=== PATIENT | male | born 2000 | race Two or more races ===

== ENCOUNTER 2022-08-19 11:51 | Emergency (ER) | payer MEDICAID ==
[~2022-08-19] VITALS: Ht 160 cm; Wt 72.6 kg
[2022-08-19 13:57] VITALS: BP 146/85
== END 2022-08-19 15:15 | disposition home or self-care (01) ==
LOC: ER 11:51
DX: L05.91 Pilonidal cyst without abscess (principal)

== ENCOUNTER 2023-07-20 12:09 | Emergency (ER) | payer BC, MEDICAID ==
[~2023-07-20] VITALS: Ht 160 cm; Wt 67.7 kg
[2023-07-20 13:46] VITALS: BP 139/61; PULSE 71; RESP 16; TEMP 97.7; O2SAT 100
[2023-07-20] MEDS ORDERED: IBUP-1454 PO (14:03)
[2023-07-20] MEDS ORDERED: BACDST PO (14:03)
== END 2023-07-20 14:41 | disposition home or self-care (01) ==
LOC: ER 12:09
DX: L05.01 Pilonidal cyst with abscess (principal)
CPT/HCPCS: 10080

== ENCOUNTER 2025-03-13 22:45 | Emergency (ER) | payer BC, MEDICAID ==
[~2025-03-13] VITALS: Ht 160 cm; Wt 63.5 kg
[~2025-03-13 22:45] MED LIST changes: -DOXY100C4 PO; -IBUP-1456 PO
--- NOTE | 2025-03-14 | DVH ---
ULTRASOUND SCROTUM CLINICAL INDICATION: LEFT TESTICULAR PAIN TECHNIQUE: High resolution scrotal ultrasound was performed with a linear transducer with duplex dopp ler and treasury representative images acquired. Color Doppler with spectral analysis was performed/attempted of the testes. COMPARISON: None FINDINGS: Right testicle: Normal in size, measuring 4.2 x 2.3 x 3.2 cm. The testicular parenchyma is homogeneou s. No testicular mass. Normal intratesticular blood flow. The right epididymis appears normal. Small right epididymal cyst measuring 3 mm Left testicle: Normal in size, measuring 3.8 x 2.4 x 3.2 cm. The testicular parenchyma is homogeneous . No testicular mass. Normal intratesticular blood flow. Enlarged in hypervascular left epididymis. IMPRESSION: Left epididymitis.
[2025-03-14] MEDS: KETOROLAC TROMETH 60MG/2ML VIAL IM ONE (00:15)
[2025-03-14] MEDS: cefTRIAXone SOD 1,000 MG VL IM ONE (00:30)
[2025-03-14] MEDS ORDERED: IBUP-1456 PO (00:35)
[2025-03-14] MEDS ORDERED: DOXY100C4 PO (00:35)
--- NOTE | 2025-03-14 00:35 | ED.PDOC ---
General HPI Comments C/C: LEFT SIDE TESTICLE PAIN FOR THE PAST WEEK. PATIENT STATES THAT THE PAIN COMES AND GOES. DENIES ANY TRAUMA OR STRAIN. PATIENT DOES STATE SEXUALLY ACTIVE WITH 1 PARTNER HOWEVER RECENTLY DID NOT WEAR PROTECTION. REPORTS NO HISTORY OF STDS IN THE PAST DENIES FEVER, CHILLS, NAUSEA, VOMITING Chief Complaint: Testicle Pain Time Seen by MD: 23:05 Reviewed notes: Nurses Notes, Medications, Allergies Allergies: Coded Allergies: NO KNOWN ALLERGIES (Unverified , 08/19/22) Home Meds Active Scripts Ibuprofen (Ibuprofen) 800 Mg Tab, 800 MG PO Q8HP PRN for 5 Days, #15 TAB Prov:EMMY TOBIN [employer] 03/14/25 Doxycycline Hyclate (Doxycycline Hyclate) 100 Mg Cap, 100 MG PO BID for 7 Days, #14 CAP Prov:EMMY TOBIN [employer] 03/14/25 Ibuprofen (Ibuprofen) 600 Mg Tab, 1 TAB PO TID, #30 TAB Prov:NESSA SMART 07/20/23 Sulfamethoxazole W/Trimethopri (Bactrim Ds Tablet) 1 Tab Tb, 1 TAB PO BID for 10 Days, #20 TAB Prov:NESSA SMART 07/20/23 Information Source: Patient Mode of Arrival: Ambulatory Past Medical History PAST MEDICAL HISTORY: Denies Surgical History: Denies all surgeries Family History Family History: Reviewed,noncontributory to illness, No family hx of Cancer, No family hx of DM, No family hx of Heart isabela, No family hx of HTN, No family hx ofKidney isabela, No family hx of Liver isabela, No family hx of Lung isabela, No family hx of Stroke Social History Smoker: Non-Smoker Alcohol: Denies ETOH Use Drugs: Denies Drug Use Lives In: Home Constitutional: denies: chills, diaphoresis, fatigue, fever, malaise, sweats, weakness, others EENTM: denies: blurred vision, double vision, ear bleeding, ear discharge, ear drainage, ear pain, ear ringing, eye pain, eye redness, hearing loss, mouth pain, mouth swelling, nasal discharge, nose bleeding, nose congestion, nose pain, photophobia, tearing, throat pain, throat swelling, voice changes, others Respiratory: denies: cough, hemoptysis, orthopnea, SOB at rest, shortness of breath, SOB with excertion, stridor, wheezing, others Cardiovascular: denies: chest pain, dizzy spells, diaphoresis, Dyspnea on exertion, edema, irregular heart beat, left arm pain, lightheadedness, palpit ations, PND, syncope, others Gastrointestinal: denies: abdomen distended, abdominal pain, blood streaked b owels, constipated, diarrhea, dysphagia, difficulty swallowing, hematemesis, melena, nausea, poor appetite, poor fluid intake, rectal bleeding, rectal pain, vomiting, others Genitourinary: reports: testicle pain; denies: burning, dysuria, flank pain, frequency, hematuria, incontinence, penile discharge, penile sore, pain, testicle swelling, urgency, others Neurological: denies: dizziness, fainting, headache, left sided numbness, left sided weakness, numbness, paresthesia, pre-existing deficit, right sided numbness, right sided weakness, seizure, speech problems, tingling, tremors, weakness, others Musculoskeletal: denies: back pain, gout, joint pain, joint swelling, muscle pain, muscle stiffness, neck pain, others Integumetry: denies: bruises, change in color, change in hair/nails, dryness, laceration, lesions, lumps, rash, wounds, others Allergic/Immunocompromised: denies: Difficulty Healing, Frequent Infections, Hives, Itching, others Hematologic/Lymphatic: denies: anemia, blood clots, easy bleeding, easy bruising, swollen glands, others Endocrine: denies: excessive hunger, excessive sweating, excessive thirst, excessive urination, flushing, intolerance to cold, intolerance to heat, unexplained weight gain, unexplained weight loss, others Psychiatric: denies: anxiety, bipolar disorder, depression, hopeless, panic di sorder, schizophrenia, sleepless, suicidal, others Physical Exam General Appearance: No Apparent Distress, Normal HEENT: Pharynx Normal Neck: Full Range of Motion, Non-Tender Respiratory: Lungs Clear, No Respiratory Distress, Normal Breath Sounds Cardiovascular: No Murmur, Normal Peripheral Pulses, Regular Rate/Rhythm Breast Exam: Deferred Gastrointestinal: No Organomegaly, Non Tender, No Pulsatile Mass, Normal Bowel Sounds, Soft Genitalia: Epididymis (LEFT TESTICLE TENDER ON PALPATION TRACE SWELLING NO NOTED LESIONS), Deferred Pelvic: Deferred Rectal: Deferred Extremities: Normal capillary refill, Normal inspection, Normal range of m otion, Non-tender, No pedal edema Musculoskeletal : Apperance: Normal Neurologic: Alert, medical office receptionist II-XII nml as Tested, No Motor Deficits, Normal Affect, Normal Mood, No Sensory Deficits Cerebellar Function: Normal Reflexes: Normal Skin: Dry, Normal Color, Warm Lymphatic: No Adenopathy Was a procedure done? Was a procedure done?: No Differential Diagnosis Kidney stone (Female): N/A Penile/Scrotal: Epidiymitis, Hydrocele, Testicular Torsion X-Ray, Labs, Meds, VS Vital Signs Date Time Temp Pulse Resp B/P (MAP) Pulse Ox O2 Delivery O2 Flow Rate FiO2 03/13/25 23:18 98.9 69 16 158/97 (117) 99 98.9 X-Ray, Labs, Meds, VS Comment TESTICULAR ULTRASOUND SHOWS LEFT TESTICULAR EPIDIDYMITIS. WE WILL TREAT CONSIDER POSSIBLE CAUSE OF STD. PATIENT GIVEN ROCEPHIN 1 G IM. SCRIPT TRIAL OF DOXYCYCLINE TWICE DAILY X7 DAYS. IBUPROFEN 800 MG T.I.D. PRN FOR THE PAIN SWELLING. ADVISED TO USE SUPPORTIVE BRIEFS AND ICE. FOLLOW UP WITH HIS PCP IN 2 DAYS. ER RETURN PRECAUTIONS GIVEN PATIENT INDICATES UNDERSTANDING AGREES WITH DISCHARGE PLAN OF CARE. Time of 1ST Reevaluation: 23:30 Reevaluation 1ST: Unchanged Time of 2ND Reevaluation: 00:33 Reevaluation 2ND: Improved Patient Education/Counseling: Diagnosis, Treatment, Prognosis, Need For Follow Up Family Education/Counseling: No Family Present Departure 1 Departure Time of Disposition: 00:33 Impression: Primary Impression: Epididymitis, left Disposition: HOME / SELF CARE / HOMELESS Condition: Stable e-Prescriptions Ibuprofen (Ibuprofen) 800 Mg Tab 800 MG PO Q8HP PRN for 5 Days, #15 TAB Prov: EMMY TOBIN 03/14/25 Doxycycline Hyclate (Doxycycline Hyclate) 100 Mg Cap 100 MG PO BID for 7 Days, #14 CAP Prov: EMMY TOBIN 03/14/25 Discharged With: Self Critical Care Note Critical Care Time?: No Stability Stability form required: EMMY Saunders March 14, 2025 00:35
[2025-03-14 05:09] VITALS: BP 127/82; PULSE 54; RESP 18; TEMP 98.4; O2SAT 99
[2025-03-14] MEDS: KETOROLAC TROMETH 30 MG/ML 1ML VIAL ONE (05:09)
[2025-03-14] MEDS: cefTRIAXone SOD 1,000 MG VL ONE (05:09)
== END 2025-03-14 05:13 | disposition home or self-care (01) ==
LOC: ER 22:45
DX: N45.1 Epididymitis (principal); Z79.1 Long term (current) use of non-steroidal anti-inflammatories (NSAID)
CPT/HCPCS: 76870; 96372; 99285; J0696; J1885

== ENCOUNTER → 2025-03-13 | Emergency (ER) | payer BC, MEDICAID ==
[~2025-03-13] MED LIST: BACDST PO; DOXY100C4 PO; IBUP-1454 PO; IBUP-1456 PO
== END | disposition left against medical advice (07) ==
LOC: ER 22:45
DX: N50.819 Testicular pain, unspecified (principal); Z53.21 Procedure and treatment not carried out due to patient leaving prior to being seen by health care provider